=== PATIENT | female | born 1955 | race Caucasian/White ===

== ENCOUNTER → 2018-03-21 | Outpatient (CLI) | payer SELFPAY ==
[~2018-03-21] MED LIST: ADV250/50 INH; AZIT1PAC21 PO; CETI10CA8 PO; CYC10 PO; CYCL10TA29 PO; HYDR-385 PO; HYDR-6016 PO; IBUP-1618 PO; IBUP-1671 PO; IOPAMIDOL 76% 75 ML INFUS BTL 75 ML ONE; LOR5 PO; METH4TAB56 PO; MON10 PO; NO MEDS; OXYC-865 PO; PER PO
--- NOTE | 2018-03-21 09:52 | RADIOLOGY IMAGING REPORT ---
FACILITY: [facility] PATIENT NAME: Carmen Grant : 1955 MR: [id number] V: [id number] EXAM DATE: ORDERING PHYSICIAN: ROZ FARR TECHNOLOGIST: Location: [facility] Patient: Carmen Grant : 1955 Visit/Account:[id number] Date of Sevice: 03/21/2018 CHEST PA AND LAT Indication: Weight loss, abdominal pain, diarrhea. History of smoking. Comparison: Chest x-ray 11/05/2013 Findings: Lungs: There is hyperinflation and flattening of the diaphragms. The lungs are clear. Mediastinum/pulmonary vasculature: Heart size and pulmonary vasculature are normal. Bones/soft tissues: Normal. IMPRESSION: 1. Findings consistent with COPD. 2. Clear lungs. Report Dictated By: Darrell Macario at 03/21/2018 9:46 AM Report E-Signed By: Darrell Macario at 03/21/2018 9:48 AM WSN:[id number]
--- NOTE | 2018-03-21 09:58 | RADIOLOGY IMAGING REPORT ---
FACILITY: [facility] PATIENT NAME: Carmen Grant : 1955 MR: [id number] V: [id number] EXAM DATE: ORDERING PHYSICIAN: ROZ FARR TECHNOLOGIST: Location: [facility] Patient: Carmen Grant : 1955 Visit/Account:[id number] Date of Sevice: 03/21/2018 ABDOMEN/PELVIS W/WO CONTRAST Indication: Weight loss, abdominal pain, diarrhea. Comparison: None. Technique: CT lung bases to the pubic symphysis were obtained without and with IV contrast. 75 cc of Isovue 370 was used. One of the following dose optimization techniques was utilized in the performance of this exam: autom ated exposure control; adjustment of the mA and/or kV according to the patient's size; or use of an i terative reconstruction technique. Specific details can be referenced in the facility's radiology CT exam operational policy. Findings: Liver/gallbladder: Liver demonstrates normal enhancement. Gallbladder is unremarkable.. Spleen: Normal. Adrenals: Normal. Pancreas: Normal enhancement without evidence of mass. Kidneys/: Right and left kidney demonstrate normal enhancement without evidence of hydronephrosis or mass. Pelvic : Bladder and uterus are normal. GI: The colon, small bowel, and stomach are normal. Vessels/spaces/nodes: Negative. Bones/soft tissues: There are no lytic or blastic bone lesions. Soft tissues are normal. Lung bases: Lung bases are clear. Impression: Negative CT of the abdomen and pelvis. There is no suspicious mass identified. Report Dictated By: Darrell Macario at 03/21/2018 9:49 AM Report E-Signed By: Darrell Macario at 03/21/2018 9:54 AM WSN:[id number]
== END ==
LOC: CT 02:18
PROVIDERS: ATTEND Nurse Practitioner Family
DX: J44.9 Chronic obstructive pulmonary disease, unspecified (principal)
CPT/HCPCS: 36415; 71046; 74178; 82565; Q9967

== ENCOUNTER 2018-04-18 11:08 | Emergency (ER) | payer SELFPAY ==
[~2018-04-18 11:08] MED LIST changes: -IOPAMIDOL 76% 75 ML INFUS BTL 75 ML ONE
[2018-04-18 11:12] VITALS: BP 104/62
--- NOTE | 2018-04-18 11:12 | ER Report ---
History and Physical Time Seen By MD: 11:13 HPI/ROS CHIEF COMPLAINT: Back pain HISTORY OF PRESENT ILLNESS: This is a 63-year-old female who presents to the emergency department for back pain and a rash. Patient states that last Sunday she had some "back spasms that she's had in the past" that seemed to increase in intensity, she saw her primary care provider February and on Sunday was given some Flexeril, patient states that this is help with the muscle spasms intermittently however she still has a rash that seems to have increased in size on the left side of her back. Patient states that the rash began on the left lower back in a very linear pattern. Patient now has open sores on the left side of her back. Very sensitive to light touch, has a burning sensation and unable to get comfortable unable to wear clothing. No nausea vomiting. No fevers or chills. No other complaints. REVIEW OF SYSTEMS: Constitutional: No fever, no chills. Eyes: No discharge. ENT: No sore throat. Cardiovascular: No chest pain, no palpitations. Respiratory: No cough, no shortness of breath. Gastrointestinal: No abdominal pain, no vomiting. Genitourinary: No hematuria. Musculoskeletal: As above. Skin: As above. Neurological: No headache. Allergies: Coded Allergies: No Known Allergies (Verified Allergy, Mild, 11/25/16) Home Meds Active Scripts Acyclovir (ACYCLOVIR) 800 Mg Tablet, 800 MG PO 5XD for 7 Days, #35 TAB 0 Refills Prov:SHEFALI JOHNSON HAND ROLLER- 04/18/18 Cyclobenzaprine Hcl (CYCLOBENZAPRINE HCL) 10 Mg Tablet, 10 MG PO TID, #9 TAB Prov:QUE RANDHAWA MD 11/25/16 Oxycodone Hcl/Acetaminophen (PERCOCET 5-325 MG TABLET) 1 Each Tablet, 1 EACH PO 2-4XD, #10 TAB Prov:QUE RANDHAWA MD 11/25/16 Cyclobenzaprine Hcl (CYCLOBENZAPRINE HCL) 10 Mg Tablet, 10 MG PO TID for Muscle Relaxant, #9 TAB Prov:PAVEL FERNANDEZ MD 07/15/16 Ibuprofen (MOTRIN IB) 200 Mg Tablet, 3 TAB PO Q6-8H, #60 TAB Prov:PAVEL FERNANDEZ MD 07/15/16 Oxycodone Hcl/Acetaminophen (PERCOCET 5-325 MG TABLET) 1 Each Tablet, 1 EACH PO Q4H for PAIN, #12 TAB 0 Refills Prov:PAVEL FERNANDEZ MD 07/15/16 Past Medical/Surgical History The patient has a past medical and surgical history of asthma, cervical spine pain secondary to degenerative joint disease, chronic back pain, wears glasses, hard hearing, tubal ligation, tonsillectomy. Reviewed Nurses Notes: Yes Hx Smoking: No Smoking Status: Former Smoker Hx Substance Use Disorder: No Hx Alcohol Use: Yes (OCCASIONALLY) Constitutional Vital Sign - Last 24 Hours 04/18/18 11:12 Temp 98.0 Pulse 86 Resp 18 B/P (MAP) 104/62 Pulse Ox 96 O2 Delivery Room Air Physical Exam General Appearance: The patient is alert, has no immediate need for airway protection and no signs of toxicity. Eyes: Pupils equal and round no pallor or injection. ENT, Mouth: Mucous membranes are moist. Respiratory: There are no retractions, lungs are clear to auscultation. Cardiovascular: Regular rate and rhythm. Gastrointestinal: Abdomen is soft and non tender, no masses, bowel sounds normal. Neurological: Alert and oriented 4. Moving all extremities. Following all commands. No focal neuro deficits. Skin: Scattered open macular papular lesions on the left back, blanchable, greater concentration on the lower back does not cross the midline. No drainage. Very sensitive to light touch. Musculoskeletal: Neck is supple non tender. Extremities are nontender, nonswollen and have full range of motion. DIFFERENTIAL DIAGNOSIS: After history and physical exam differential diagnosis was considered for chronic back pain, muscle spasm, shingles and viral exanthem. Medical Decision Making ED Course/Re-evaluation ED Course The patient was admitted to room. A history and physical were obtained. Differential diagnoses were considered. After discussing the patient's initial onset of symptoms, it does sound as though she has an outbreak of shingles, originally on the left lower back she had a very linear area that had multiple lesions which was very painful and sensitive to light touch. Since then she's had increased left sided back pain, does not cross the midline. The patient was given a prescription for acyclovir, she has pain medications at home. The patient was instructed to follow-up with her primary care provider within the next 2 days for reevaluation. Patient had no other questions or concerns at this time discharged home. Decision to Disposition Date: Apr 18, 2018 Decision to Disposition Time: 11:24 Depart Departure Latest Vital Signs Vital Signs Date Time Temp Pulse Resp B/P (MAP) Pulse Ox O2 Delivery O2 Flow Rate FiO2 04/18/18 11:12 98.0 86 18 104/62 96 Room Air Impression: Primary Impression: Chronic back pain Additional Impression: Herpes zoster Condition: Improved Disposition: HOME OR SELF-CARE Referrals: ROZ FARR 5 Days New Scripts Acyclovir (ACYCLOVIR) 800 Mg Tablet 800 MG PO 5XD for 7 Days, #35 TAB 0 Refills Prov: SHEFALI JOHNSON-KARRIE 04/18/18 Patient Instructions: Shingles (ED) Additional Instructions: Take the acyclovir as prescribed. Follow-up with Kehinde Farr within the next 2-5 days for reevaluation. Drink plenty of water. Get plenty of rest. Continue taking her regular medications as prescribed. Return to the ER for any other concerns or worsening symptoms. Problem Qualifiers Primary Impression: Chronic back pain Back pain location: thoracic back pain Back pain laterality: left Qu alified Codes: M54.6 - Pain in thoracic spine; G89.29 - Other chronic pain Additional Impression: Herpes zoster Herpes zoster complications: without complications Qualified Codes: B02.9 - Zoster without complications SHEFALI JOHNSON- Apr 18, 2018 11:12
[2018-04-18] MEDS ORDERED: ACYC800T99 PO (11:28)
== END 2018-04-18 11:38 | disposition home or self-care (01) ==
LOC: ER 11:29
DX: M54.6 Pain in thoracic spine (principal); G89.29 Other chronic pain; B02.9 Zoster without complications
CPT/HCPCS: 99282